=== PATIENT | female | born 1960 | race Caucasian/White ===

== ENCOUNTER → 2020-08-01 | Outpatient (CLI) | payer OTHER ==
[~2020-08-01] MED LIST: AMLODIPINE BESYL5 MG PO; CLARITIN10 MG PO; PREVACID15 MG PO; SYNTHROID25 MCG PO
[2020-08-01 10:26] LABS: HEMOGLOBIN 14.7 gm/dl (12.3-15.3); RED BLOOD COUNT 4.96 M/UL (4.00-5.10); WHITE BLOOD COUNT 8.4 K/UL (4.5-11.0)
[2020-08-01 10:50] LABS: BUN/CREATININE RATIO 20 (0-10)
== END ==
LOC: MAMO 09:00
PROVIDERS: Internal Medicine Hematology & Oncology
DX: Z12.31 Encounter for screening mammogram for malignant neoplasm of breast (principal); Z90.11 Acquired absence of right breast and nipple; Z85.3 Personal history of malignant neoplasm of breast
CPT/HCPCS: 36415; 77063; 77067; 80053; 85025

== ENCOUNTER → 2020-09-03 | Outpatient (CLI) | payer OTHER | LOC: MAMO 08-12 13:30 | DX: C50.411 Malignant neoplasm of upper-outer quadrant of right female breast (principal); Z90.11 Acquired absence of right breast and nipple | CPT/HCPCS: 77065; G0279 ==

== ENCOUNTER → 2021-04-08 | Outpatient (CLI) | payer OTHER | LOC: MAMO 13:47 | DX: C50.411 Malignant neoplasm of upper-outer quadrant of right female breast (principal) | CPT/HCPCS: 77065; G0279 ==

== ENCOUNTER → 2021-07-15 | Outpatient (CLI) | payer OTHER | LOC: KOH-I 07-14 15:30 | DX: M47.26 Other spondylosis with radiculopathy, lumbar region (principal); M47.816 Spondylosis without myelopathy or radiculopathy, lumbar region; M48.061 Spinal stenosis, lumbar region without neurogenic claudication; M51.27 Other intervertebral disc displacement, lumbosacral region | CPT/HCPCS: 72148 ==

== ENCOUNTER → 2021-10-13 | Outpatient (CLI) | payer OTHER | LOC: HEART CORB 12:51 | DX: M79.604 Pain in right leg (principal); M79.605 Pain in left leg; I73.9 Peripheral vascular disease, unspecified ==

== ENCOUNTER → 2021-11-04 | Outpatient (CLI) | payer OTHER | LOC: CT 12:59 | DX: Z01.818 Encounter for other preprocedural examination (principal); R68.89 Other general symptoms and signs; I70.219 Atherosclerosis of native arteries of extremities with intermittent claudication, unspecified extremity | CPT/HCPCS: 36415; 75635; 82565; Q9967 ==

== ENCOUNTER → 2022-04-10 | Outpatient (CLI) | payer OTHER | LOC: MAMO 12:58 | DX: C50.411 Malignant neoplasm of upper-outer quadrant of right female breast (principal); Z90.11 Acquired absence of right breast and nipple | CPT/HCPCS: 77063; 77067 ==